=== PATIENT | female | born 1950 | race Hispanic/Latino ===

== ENCOUNTER 2018-08-16 13:30 | Emergency (ER) | payer MEDICARE, OTHER ==
[~2018-08-16] VITALS: Ht 149.9 cm; Wt 67.1 kg
--- NOTE | 2018-08-16 14:25 | Diagnostic Imaging Report ---
HAND 3 VIEW RT - HOPD HISTORY: Pain. Finger and thumb pain, swelling, bruising throughout hand and lateral distal wrist/thumb region. COMPARISON: None available. FINDINGS: Bones: No acute displaced fracture. Osseous alignment is within normal limits. Joints: The joint spaces are well-maintained. Soft tissues: Soft tissue swelling of the lateral hand. IMPRESSION: No acute bony abnormality. Signed by: DR. Ronald Nguyen MD on 08/16/2018 2:21 PM
== END 2018-08-16 15:30 | disposition home or self-care (01) ==
LOC: FSED 13:30
DX: S63.621A Sprain of interphalangeal joint of right thumb, initial encounter (principal); W18.39XA Other fall on same level, initial encounter; Y92.008 Other place in unspecified non-institutional (private) residence as the place of occurrence of the external cause; I10 Essential (primary) hypertension; E11.9 Type 2 diabetes mellitus without complications
CPT/HCPCS: 99284